=== PATIENT | female | born 1955 | race Caucasian/White ===

== ENCOUNTER 2017-07-26 01:37 | Inpatient (IN) | payer OTHER ==
[~2017-07-26] VITALS: Ht 154.9 cm; Wt 98.0 kg
[~2017-07-26 01:37] MED LIST: AMLODIPINE BESY10 M1 PO; ATORVASTATIN CA20 M1 PO; LOSARTAN POTAS100 M1 PO; VITAMIN D2000 UNI1 PO
--- NOTE | 2017-07-26 07:19 | Operative Report ---
Operative/Inv Procedure Report Surgery Date: 07/26/17 Name of Procedure: Right total knee arthroplasty Pre-Operative Diagnosis: Right knee degenerative joint disease Post-Operative Diagnosis: Right knee degenerative joint disease Estimated Blood Loss: 50ml to 100ml Surgeon/Damper Worker: Russ VERMA,ELIE [place] Anesthesia: block, spinal Implants: [employer] size 3 right cruciate retaining Legion Oxinium femoral component. 13 mm Legion cruciate retaining XLPE high flex articular insert size2. Dianne II right nonporous tibial baseplate size 2. Dianne II biconvex patellar component 23 mm. Complications: None Condition: Stable to PACU Operative Indication: This is a 62-year-old female standing right knee pain that has failed conservative care. Risks and benefits of the procedure were discussed with the patient at length. Risks include but are not limited to nerve damage, muscle damage, infection, blood loss, blood clots, pulmonary embolus, and even . The patient agreed to the above risks and elected to proceed with surgery. Operative/Procedure Note Note: The patient was taken to the operating room. Anesthesia was induced after the timeout was performed. The lower extremity was prepped and draped in the normal sterile fashion. IV antibiotics were given prior to incision. The site marking was visualized prior to incision. After the leg was prepped and draped, an esmarch was used to exsanguinate the extremity. The tourniquet was inflated. A midline incision was made proximal to the patella extending down to the tibial tubercle. A medial parapatellar approach was then made. The skin was retracted and the extensor mechanism was incised. The knee was taken down into full extension. The patellar fat pad was resected. The medial retinaculum was then taken down. The synovium over the distal femur was then resected. The patella was everted and the knee was flexed up. The lateral meniscus was then excised. The ACL was removed. A drill was then used to open up the distal femur. The intramedullary guide was then applied. A 6 distal femoral cut was then made. The femur was then sized. The chamfer guide was then applied. The anterior, posterior, and chamfer cuts were then made while protecting the patellar tendon with a Hohmann retractor and the medial collateral ligament with a Z retractor. A pickle fork was then used to deliver the tibia. The extramedullary tibial guide was then applied. The proximal tibial cut was made. The medial and lateral meniscus were then excised. The osteophytes were removed with a Rongeur. The tibia was sized and the trial base plate was then pinned in place. A trial femoral component was placed and a trial polyethylene insert was then applied as well. The knee was taken through a range of motion and was noted to be quite stable. The patella was then everted, sized, and then reamed. A trial patellar component was placed and the knee was taken through range of motion. The patella was noted to be quite stable. All trial instruments were then removed. The knee was copiously irrigated. Retractors were placed in the final components were then cemented in. A trial polyethylene insert was then placed. After the cement hardened, the excess cement was removed. The trial poly-insert was then removed. The knee was copiously irrigated. The final poly insert was inserted. The tourniquet was let down. Any bleeding vessels were identified and cauterized. A 1/8 inch Hemovac drain was then placed. The extensor mechanism was closed with #1 Vicryl suture in a simple interrupted fashion. The skin was closed with 2-0 Vicryl suture. A running subcuticular 4-0 Monocryl stitch was then placed. Dermabond was applied. A dry sterile dressing was placed and patient was transferred to PACU in stable condition.
--- NOTE | 2017-07-26 10:48 | Admission Core Measures ---
Acute Coronary Syndrome (CM) ACS Core Measures Acute Coronary Syndrome Diagnosis No Congestive Heart Failure (NEW) CHF Core Measures Congestive Heart Failure Diagnosis No Cerebrovascular Accident (NEW) CVA Core Measures CVA/TIA Diagnosis No Venous Thromboembolism VTE Core Ivone (View Protocol) VTE Risk Factors Surgery No Mechanical VTE Prophylaxis d/t N/A MechProphylax Ordered No VTE Pharm Prophylaxis d/t NA PharmProphylax ordered Problem List As ranked by this Provider includes Assessment & Plan 1. Unilateral primary osteoarthritis, right knee HOME MEDS Home Med List Amlodipine Besylate 10 MG TABLET 1 TAB PO DAILY BP (Reported) Atorvastatin Calcium 20 MG TABLET 1 TAB PO DAILY CHOLESTEROL (Reported) Cholecalciferol (Vitamin D3) (Vitamin D) 2,000 UNIT TABLET 1 TAB PO DAILY SUPPLEMENT (Reported) Losartan Potassium 100 MG TABLET 1 TAB PO DAILY BP (Reported)
--- NOTE | 2017-07-26 10:51 | Patient Discharge Instructions ---
Discharge Instructions General Discharge Information You were seen/treated for: Unilateral primary osteoarthritis right knee You had these procedures: Right total knee replacement Watch for these problems: Increasing pain despite the use of pain medication Increasing redness, warmth, swelling Drainage of any type from incision Inability to bear weight on right leg Fever greater than 101.5 Do not soak the wound: Yes No bath, but you may shower: Yes Other wound care: Keep wound clean and dry No ointments or lotions on or near incisions at any time. No exceptions. Diet Continue normal diet: Yes Recommended Diet: Heart Healthy Activity Full Activity/No Limits: No Activity Self Limited: Yes Pounds, do NOT lift more than: 10 Acute Coronary Syndrome Inclusion Criteria At DC or during hospital stay patient has or had the following: ACS DIAGNOSIS No Discharge Core Measures Meds if any: Prescribed or Continued at Discharge Meds if any: NOT Prescribed or Continued at Discharge Congestive Heart Failure Inclusion Criteria At DC or during hospital stay patient has or had the following: CHF DIAGNOSIS No Discharge Core Measures Meds if any: Prescribed or Continued at Discharge Meds if any: NOT Prescribed or Continued at Discharge Cerebrovascular accident Inclusion Criteria At DC or during hospital stay patient has or had the following: CVA/TIA Diagnosis No Discharge Core Measures Meds if any: Prescribed or Continued at Discharge Meds if any: NOT Prescribed or Continued at Discharge Venous thromboembolism Inclusion Criteria VTE Diagnosis No VTE Type NONE VTE Confirmed by (Test) NONE Discharge Core Measures - Per Current guidelines, there needs to be overlap - treatment for the first 5 days of Warfarin therapy. - If discharged on Warfarin prior to 5 days of - overlap therapy, the patient will need to be - assessed for post discharge needs including - *Post discharge parental anticoagulation - *Warfarin and/or parental anticoagulation education - *Follow up date to check INR post discharge At least 5 days overlap therapy as Inpatient No Meds if any: Prescribed or Continued at Discharge Note: Overlap Therapy is Warfarin and Anticoagulant Meds if any: NOT Prescribed or Continued at Discharge
--- NOTE | 2017-07-26 10:55 | Surgical Discharge Summary ---
Visit Information Visit Dates Admission Date: 07/26/17 Discharge Date: 07/28/17 History of Present Illness Chief Complaint: Right knee unilateral primary osteoarthritis Medical History Isolation History: Standard Surgical History Pertinent Surgical History: non-contributory Psychosocial History What is Your Primary Language? Upper Sorbian Review of Systems: See H&P Hospital Course Course Attending Physician: Moose Solano MD Primary Care Physician: Raudel VERMA,[facility] Hospital Course: Leticia was admitted to the hospital for an elective right total joint replacement. She tolerated the procedure well and was transferred to a general surgical floor. Her hospital course was uncomplicated. Her diet was advanced and tolearted. She voided spontaneously. Her pain was controlled with po meds. She was evaluated and treated by physical therapy. At the time of hospital discharge, her vital signs were stable and within normal limits and her neurovascular status was intact. She was deemed appropriate for discharge. Allergies: Coded Allergies: No Known Allergies (07/24/17) Disposition Summary Disposition Principal Diagnosis: Right knee unilateral primary osteoarthritis Additional Diagnosis: None Discharge Disposition: home health services Discharge Instructions General Discharge Information Code Status: Full Code Patient's Diet: Regular, advance as tolerated Patient's Activity: WBAT Follow-Up Instructions/Appts: Follow up with Dr. Solano in 2 weeks from date of surgery. Call office to arrange/confirm this appointment. Medications at Discharge Discharge Medications: Continue taking these medications: Losartan Potassium (Losartan Potassium) 100 MG TABLET 1 Tablet ORAL DAILY Amlodipine Besylate (Amlodipine Besylate) 10 MG TABLET 1 Tablet ORAL DAILY Atorvastatin Calcium (Atorvastatin Calcium) 20 MG TABLET 1 Tablet ORAL DAILY Cholecalciferol (Vitamin D3) (Vitamin D) 2,000 UNIT TABLET 1 Tablet ORAL DAILY Start taking the following new medications: Docusate Sodium (Docusate Sodium) 100 MG CAPSULE 100 Milligram ORAL DAILY NEEDED as needed for CONSTIPATION Qty = 60 No Refills Enoxaparin Sodium (Lovenox) 40 MG/0.4 ML SYRINGE 0.4 Milliliters Inject into fatty tissue DAILY Qty = 30 No Refills Oxycodone HCl/Acetaminophen (Oxycodon-Acetaminophen 7.5-325) 7.5 MG-325 MG TABLET 1-2 Tablet ORAL Q4H as needed for PAIN Qty = 40 No Refills Ibuprofen (Ibuprofen) 800 MG TABLET 1 Tablet ORAL THREE TIMES DAILY as needed for pain control Qty = 30 No Refills Instructions: take with food
--- NOTE | 2017-07-26 13:12 | PN- Orthopedic ---
Subjective Subjective: POSTOP CHECK Patient reports parathesias in her right leg. She reports postop pain is well controlled since onQ pump was placed. Denies chest pain, shortness of breath or difficulty breathing. Objective Vital Signs and I&Os TEMP 97.9, PULSE 82, BP 110/60, RR 14 02 SAT 95% ON RA Physical Exam: Gen - resting comfortably in PACU awake an alert in NAD Cardiac - S1S2 noted Lungs - CTAB Ext - RLE dressing c/d/i, onQ and ice in place, moves all extremities, soft compartment, motor and sensory intact, DINH x1 in place with 10 cc serosanguineous drainage, - Vitale in place Current Medications: Current Medications Sig/Velasquez Start time Last Medication Dose Route Stop Time Status Admin Acetaminophen 650 MG Q4P PRN 07/26 1330 UNVr PO Amlodipine Besylate 10 MG DAILY 07/27 1000 UNVr PO Atorvastatin Calcium 20 MG 1700 07/26 1700 UNVr PO Cefazolin Sodium 2 GM IQ8 07/26 1600 UNVr N/A 1 UNIT IV 07/27 0029 Cefazolin Sodium 2,000 MG ONCE 07/26 0000 DC IV 07/26 2359 Cholecalciferol 2,000 IU DAILY 07/27 1000 AC PO Dextrose/Sodium 1,000 ML .[id number] 07/26 1330 AC Chloride IV Docusate Sodium 100 MG DAILY NEEDED PRN 07/26 1330 UNVr PO Enoxaparin Sodium 40 MG DAILY 07/27 1000 UNVr SC Ketorolac 30 MG Q8 07/26 1400 UNVr Tromethamine IV 07/29 0601 Losartan Potassium 100 MG DAILY 07/27 1000 UNVr PO Midazolam HCl 0 .STK-MED ONE 07/26 0729 DC .ROUTE Morphine Sulfate 4 MG Q4 HRS NEEDED PRN 07/26 1330 UNVr IV Ondansetron HCl 4 MG Q6P PRN 07/26 1330 UNVr IV Oxycodone/ 1 TAB Q4P PRN 07/26 1330 UNVr Acetaminophen PO Oxycodone/ 2 TAB Q4P PRN 07/26 1330 UNVr Acetaminophen PO Polyethylene Glycol 17 GM DAILY NEEDED PRN 07/26 1330 UNVr PO Promethazine HCl 12.5 MG Q6P PRN 07/26 1330 UNVr IV 08/02 1014 Ropivacaine 500 ML ONCE ONE 07/26 1130 DC ON-Q Ball 1 BAG INJ 07/26 1131 Senna/Docusate Sodium 2 TAB AT BEDTIME NEED.. 07/26 1330 UNVr PO Assessment/Plan Assessment/Plan 62 F POD 0 s/p R TKR w/ JPx1, awaiting PT eval PT eval, WBAT Advance to a reg diet Cont IVF Postop abx - ancef x2 DINH to bulb suction Pain regimen prn Cont OnQ Home meds on board Lovenox 40 tomorrow am Encourage IS D/c genny in am Core Measures Venous Thromboembolism VTE Risk Factors Surgery No Mechanical VTE Prophylaxis d/t N/A MechProphylax Ordered No VTE Pharm Prophylaxis d/t NA PharmProphylax ordered
[2017-07-26 13:37] VITALS: BP 130/80
[2017-07-26 14:58] VITALS: BP 130/70
[2017-07-26] MEDS ORDERED: LOVENOX40 MG/0.1 SC (16:07)
[2017-07-26] MEDS ORDERED: OXYCODON-ACETA1 EAC1 PO (16:07)
[2017-07-26 17:51] VITALS: BP 140/82
[2017-07-26 19:30] VITALS: BP 148/84
[2017-07-26 23:30] VITALS: BP 144/80
[2017-07-27 03:30] VITALS: BP 148/78
[2017-07-27 07:36] VITALS: BP 148/78
--- NOTE | 2017-07-27 07:38 | PN- Orthopedic ---
Surgical Brief Attending Note Brief Attending Note: No complaints, resting comfortably AVSS RLE - +EHL/FHL +sens m/l/1st dws dressing c/d/i A/P - POD 1 s/p R TKA WBAT PT Lovenox daily Pull drain this afternoon
[2017-07-27 08:25] LABS: ABSOLUTE BASOPHIL COUNT 0 /CUMM (0.0-0.2); ABSOLUTE EOSINOPHIL COUNT 0 /CUMM (0.0-0.7); ABSOLUTE GRANULOCYTE CT 13.2 /CUMM (1.4-6.5); ABSOLUTE MONOCYTE COUNT 0.8 /CUMM (0.10-0.60); BASOPHIL % 0 % (0.0-2.0); EOSINOPHIL % 0 % (0-5); HEMATOCRIT 35.3 % (37-47); MEAN CORPUSCULAR HGB 30.8 PG (27.0-31.0); MEAN CORPUSCULAR HGB CONC 34.1 G/DL (33.0-37.0); MEAN CORPUSCULAR VOLUME 90.1 FL (81.0-99.0); MEAN PLATELET VOLUME 7.4 FL (7.4-10.4); PLATELET COUNT 250 /CUMM (130-400); RBC DISTRIBUTION WIDTH 12.8 % (11.5-14.5); RED BLOOD CELL CT 3.92 /CUMM (4.20-5.40)
[2017-07-27 09:14] LABS: GRANULOCYTE % 87.9 % (42.2-75.2)
[2017-07-27] MEDS ORDERED: IBUPROFEN800 M1 PO (12:13)
[2017-07-27] MEDS ORDERED: DOCUSATE SODIU100 M3 PO (12:13)
[2017-07-27 14:06] VITALS: BP 138/80
[2017-07-27 18:00] VITALS: BP 140/90
[2017-07-27 22:26] VITALS: BP 134/80
[2017-07-28 06:36] VITALS: BP 144/94
[2017-07-28 08:38] LABS: ABSOLUTE BASOPHIL COUNT 0 /CUMM (0.0-0.2); ABSOLUTE EOSINOPHIL COUNT 0.1 /CUMM (0.0-0.7); ABSOLUTE GRANULOCYTE CT 7.7 /CUMM (1.4-6.5); ABSOLUTE LYMPH COUNT 2.5 /CUMM (1.2-3.4); ABSOLUTE MONOCYTE COUNT 0.7 /CUMM (0.10-0.60); BASOPHIL % 0.3 % (0.0-2.0); EOSINOPHIL % 0.5 % (0-5); GRANULOCYTE % 70.3 % (42.2-75.2); HEMATOCRIT 34.5 % (37-47); MEAN CORPUSCULAR HGB 30.6 PG (27.0-31.0); MEAN CORPUSCULAR HGB CONC 33.7 G/DL (33.0-37.0); MEAN CORPUSCULAR VOLUME 90.8 FL (81.0-99.0); MEAN PLATELET VOLUME 7.4 FL (7.4-10.4); PLATELET COUNT 240 /CUMM (130-400); RBC DISTRIBUTION WIDTH 13.3 % (11.5-14.5)
--- NOTE | 2017-07-28 08:52 | PN- Orthopedic ---
Subjective Subjective: some rle pain, controlled w percocet. +oob with pt, cleared for home dc with services. norm reg diet, no n/v. no cp/sob. +bm, +void Objective Vital Signs and I&Os Vital Signs Date Time Temp Pulse Resp B/P B/P Pulse O2 O2 Flow FiO2 Mean Ox Delivery Rate 07/28 0636 98.3 77 20 144/94 97 Room Air 07/27 2226 98.2 92 18 134/80 97 Room Air 07/27 1800 98.1 83 20 140/90 97 Room Air 07/27 1406 98.7 93 20 138/80 98 Room Air 07/27 0954 89 148/78 07/27 0953 89 148/78 Intake & Output 07/28 1600 07/28 0800 07/28 0000 07/27 1600 07/27 0800 07/27 0000 Intake Total 260 116 608 0798 1060 Output Total 071 367 5924 403 Balance 260 400 100 52 657 Intake, IV 20 20 600 600 Intake, Oral 240 480 600 600 460 Output, 100 48 3 Drainage Output, Urine 500 1100 400 Physical Exam: gen- nad card- s1s2 rrr pulm- ctab abd- soft nt ext- rle dressing dc'ed, incision cdi w skin glue, some edema at incision, ttp. +pedal pulses, +dorsi/plantar flexion. calves soft nt bl. OnQ removed from RLQ , site clean and dry. Assessment/Plan Assessment/Plan A- 62F POD2 sp R TKR, stable with appropriate postop pain P- prn po pain meds wbat, pt reg diet as tolerated OnQ removed lovenox 40 daily dc planning dw attending Core Measures Venous Thromboembolism VTE Risk Factors Surgery No Mechanical VTE Prophylaxis d/t N/A MechProphylax Ordered No VTE Pharm Prophylaxis d/t NA PharmProphylax ordered
[2017-07-28 09:18] VITALS: BP 150/94
== END 2017-07-28 13:05 | disposition home health service (06) | DRG 470 ==
LOC: SDA 01:37 → ENRESERV 10:31 → ENTRNSPT 12:54 → EDTRNSPTSTS 13:04 → EDTRNSPT 13:04 → 2NA 13:15 → CMPTRNSPT 13:25 → ENPENDDIS 07-28 09:19 → ENTRNSPT 07-28 12:49 → 2NA 07-28 13:05 → CMPTRNSPT 07-28 13:31
PROVIDERS: Physician Assistant; Physician Assistant Surgical
PROC: 0SRC069 Replacement of Right Knee Joint with Oxidized Zirconium on Polyethylene Synthetic Substitute, Cemented, Open Approach (ICD-10-PCS; principal; 2017-07-26)
DX: M17.11 Unilateral primary osteoarthritis, right knee (principal); E21.3 Hyperparathyroidism, unspecified; E78.5 Hyperlipidemia, unspecified; R73.03 Prediabetes
CPT/HCPCS: 2NAP; 36415; 82436; 87086; 97110-GO; 97116-GO; 97161-GP; 97530-GO; C1713; J0131; J0690; J1650; J1885; J2405; J2550; J2795; J3490; J7042